=== PATIENT | female | born 1985 | race African-American/Black ===

== ENCOUNTER 2017-09-17 16:37 | Emergency (ER) | payer OTHER ==
[2017-09-17 16:58] VITALS: BP 113/62; PULSE 98; TEMP 97.6; BMI 63.8
--- NOTE | 2017-09-17 16:58 | PDOC ---
Rapid Medical Evaluation Chief Complaint: Cold Symptoms Time Seen by Provider: 09/17/17 16:56 Medical Evaluation: Allergies Allergy/AdvReac Type Severity Reaction Status Date / Time No Known Allergies Allergy Verified 05/07/16 19:58 09/17/17 16:56 The patient presents with a chief complaint of: Sore throat, ear pain, congestion for 5 days. I have performed a brief in-person evaluation of this patient; Pertinent physical exam findings: Erythematous 3+ tonsils, uvula is midline I have ordered the following: Rapid strep The patient will proceed to the ED for further evaluation. Discharge Disposition - Diagnosis Strep pharyngitis - Discharge Dispostion Disposition: HOME Condition at time of disposition: Good - Prescriptions Prescriptions: Penicillin V Potassium [Pen Vee K -] 500 mg PO BID #20 tablet - Referrals Referrals: Kade Cardoza MD [Primary Care Provider] - - Patient Instructions Printed Discharge Instructions: DI for Strep Throat Additional Instructions: gargle with warm salt water every 4hrs and after meals take motrin 800mg every 6hrs for pain honey and lemon and tea take the penicillin as directed for 10 days finish all the medications - Post Discharge Activity Work/School Note: Back to Work
--- NOTE | 2017-09-17 17:40 | PDOC ---
History of Present Illness - General Chief Complaint: Cold Symptoms Stated Complaint: COLD SYMPTOMS Time Seen by Provider: 09/17/17 16:56 History Source: Patient Exam Limitations: No Limitations - History of Present Illness Initial Comments: 09/17/17 17:36 c/o sore throat 5 days with fever and foul smelling breath. 09/17/17 17:46 Timing/Duration: reports: getting worse Severity: reports: moderate Past History - Past Medical History Allergies/Adverse Reactions: Allergies Allergy/AdvReac Type Severity Reaction Status Date / Time No Known Allergies Allergy Verified 09/17/17 16:58 Home Medications: Ambulatory Orders Penicillin V Potassium [Pen Vee K -] 500 mg PO BID #20 tablet 09/17/17 COPD: No Other medical history: obesity - Suicide/Smoking/Psychosocial Hx Smoking History: Never smoked Have you smoked in the past 12 months: No Information on smoking cessation initiated: No Hx Alcohol Use: No Drug/Substance Use Hx: No Substance Use Type: None Respiratory Specific PMHX - Complaint Specific PMHX Angina: No Bronchitis: No Pneumonia: No Pulmonary Embolus: No TB (Tuberculosis): No Review of Systems - Review of Systems Able to Perform ROS?: Yes Is the patient limited Bulgarian proficient: No Constitutional: Yes: Symptoms Reported, Fever HEENTM: Yes: Symptoms Reported *Physical Exam - Vital Signs Last Vital Signs Temp Pulse Resp BP Pulse Ox 97.6 F 98 H 19 113/62 99 09/17/17 16:55 09/17/17 16:55 09/17/17 16:55 09/17/17 16:55 09/17/17 16:55 - Physical Exam General Appearance: Yes: Nourished, Appropriately Dressed, Obese HEENT: positive: EOMI, BRANDON, Pharyngeal Erythema, Tonsillar Erythema Neck: positive: Lymphadenopathy (R), Lymphadenopathy (L) Respiratory/Chest: positive: Lungs Clear, Normal Breath Sounds Cardiovascular: positive: Regular Rhythm, Regular Rate Musculoskeletal: positive: Normal Inspection Extremity: positive: Normal Capillary Refill, Normal Inspection, Normal Range of Motion Integumentary: positive: Normal Color, Dry, Warm Neurologic: positive: skid wrapper II-XII NML intact, Fully Oriented, Alert, Normal Mood/ Affect, Normal Response, Motor Strength 5/5 ED Treatment Course - ADDITIONAL ORDERS Additional order review: 09/17/17 17:00 Group A Strep Rapid Antigen - Preliminary Throat Medical Decision Making - Medical Decision Making 09/17/17 17:37 cc: sore throat diff swallowing rapid strep sent from [facility] is positive will treat for strep *DC/Admit/Observation/Transfer Diagnosis at time of Disposition: Strep pharyngitis - Discharge Dispostion Disposition: HOME Condition at time of disposition: Good - Prescriptions Prescriptions: Penicillin V Potassium [Pen Vee K -] 500 mg PO BID #20 tablet - Referrals Referrals: Kade Cardoza MD [Primary Care Provider] - - Patient Instructions Printed Discharge Instructions: DI for Strep Throat Additional Instructions: gargle with warm salt water every 4hrs and after meals take motrin 800mg every 6hrs for pain honey and lemon and tea take the penicillin as directed for 10 days finish all the medications - Post Discharge Activity Forms/Work/School Notes: Back to Work
[2017-09-17] MEDS ORDERED: KETOROLAC TROMETHAMINE 60 MG/2 ML VIAL IM ONE (17:44)
[2017-09-17] MEDS ORDERED: KETOROLAC TROMETHAMINE 60 MG/2 ML VIAL ONE (17:45)
== END 2017-09-17 17:49 | disposition home or self-care (01) ==
LOC: JERFT 16:37
DX: J02.0 Streptococcal pharyngitis (principal); B95.0 Streptococcus, group A, as the cause of diseases classified elsewhere
CPT/HCPCS: 87070; 87077; 87430; 99281-25

== ENCOUNTER 2018-05-20 20:35 | Emergency (ER) | payer OTHER ==
[2018-05-20 21:02] VITALS: BP 120/73; PULSE 98; TEMP 98; BMI 63.8
--- NOTE | 2018-05-20 21:02 | PDOC ---
Rapid Medical Evaluation Chief Complaint: Pain, Acute Time Seen by Provider: 05/20/18 20:59 Medical Evaluation: Allergies Allergy/AdvReac Type Severity Reaction Status Date / Time No Known Allergies Allergy Verified 09/17/17 16:58 05/20/18 20:59 32 year old with right chronic knee pain now with knee pain. denies new trauma of injury. IBuprofen last this am. PE: able to leg raise, walks with a limp A: knee pain patient to the ER for further management of care. Discharge Disposition - Diagnosis Knee pain, right Qualifiers: Chronicity: acute Qualified Code(s): M25.561 - Pain in right knee - Referrals - Patient Instructions - Post Discharge Activity
--- NOTE | 2018-05-20 22:03 | PDOC ---
History of Present Illness - General Chief Complaint: Pain, Acute Stated Complaint: RIGHT KNEE PAIN Time Seen by Provider: 05/20/18 20:59 - History of Present Illness Initial Comments: 32-year-old female without comorbidities presents for evaluation of atraumatic onset of right knee pain. She states her knee pain started about 2 days ago without any precipitating traumatic event. She does have a history of right knee arthroscopy about 3 years ago. 05/20/18 22:00 Past History - Past Medical History Allergies/Adverse Reactions: Allergies Allergy/AdvReac Type Severity Reaction Status Date / Time No Known Allergies Allergy Verified 05/20/18 21:01 Home Medications: Ambulatory Orders NK [No Known Home Medication] 05/20/18 COPD: No - Suicide/Smoking/Psychosocial Hx Smoking History: Never smoked Have you smoked in the past 12 months: No Information on smoking cessation initiated: No Hx Alcohol Use: No Drug/Substance Use Hx: No Substance Use Type: None Review of Systems - Review of Systems Musculoskeletal: Yes: See HPI, Joint Pain All Other Systems: Reviewed and Negative *Physical Exam - Vital Signs Last Vital Signs Temp Pulse Resp BP Pulse Ox 98.0 F 98 H 16 120/73 100 05/20/18 21:00 05/20/18 21:00 05/20/18 21:00 05/20/18 21:00 05/20/18 21:00 - Physical Exam Comments: Right knee skin color and temperature are normal range of motion 0-95 with pain at terminal flexion. She has posterior medial joint line tenderness no lateral joint line tenderness no evidence of instability. Thigh and calf are soft and nontender. She has no gross sensorimotor deficits negative straight leg raise test and normal hip range of motion. Neurovascular intact 05/20/18 22:00 Medical Decision Making - Medical Decision Making Slightly early-onset osteoarthritis after medial meniscectomy about 3 years ago in this morbidly obese 32-year-old female 05/20/18 22:01 *DC/Admit/Observation/Transfer Diagnosis at time of Disposition: Knee pain, right Qualifiers: Chronicity: acute Qualified Code(s): M25.561 - Pain in right knee - Discharge Dispostion Disposition: HOME Condition at time of disposition: Stable Decision to Admit order: No - Referrals Referrals: Alfredito Arroyo MD [Staff Physician] - - Patient Instructions Printed Discharge Instructions: DI for Knee Pain Additional Instructions: Follow-up with orthopedic surgery in 2-3 days. Return to the emergency room if symptoms should worsen or go unresolved. He may continue to take Tylenol and Motrin as directed for pain. Wait - Post Discharge Activity
== END 2018-05-20 22:04 | disposition home or self-care (01) ==
LOC: JERFT 20:35
DX: M17.11 Unilateral primary osteoarthritis, right knee (principal); E66.01 Morbid (severe) obesity due to excess calories; Z68.44 Body mass index [BMI] 60.0-69.9, adult
CPT/HCPCS: 99281-25

== ENCOUNTER 2019-01-03 20:37 | Emergency (ER) | payer OTHER ==
[2019-01-03 20:56] VITALS: BP 144/72; TEMP 98.3; BMI 59.0
[2019-01-03] MEDS ORDERED: AMOX TR/POT CLAV 875MG/125MG TABLETS (FP) PO ONE (21:28)
[2019-01-03] MEDS ORDERED: KETOROLAC TROMETHAMINE 60 MG/2 ML VIAL IM ONE (21:28)
[2019-01-03] MEDS ORDERED: KETOROLAC TROMETHAMINE 60 MG/2 ML VIAL ONE (21:32)
[2019-01-03] MEDS ORDERED: AMOX TR/POT CLAV 875MG/125MG TABLETS (FP) ONE (21:32)
--- NOTE | 2019-01-03 21:33 | PDOC ---
History of Present Illness - General Chief Complaint: Toothache Stated Complaint: INFECTED GUM/RIGHT SIDE Time Seen by Provider: 01/03/19 20:55 History Source: Patient Exam Limitations: No Limitations - History of Present Illness Initial Comments: 01/03/19 21:31 Patient states had onset of pain and mild swelling to her right cheek lower jaw yesterday as progressively worsened throughout today. Took ibuprofen this morning with minimal resolved. Denies dental injury, denies any decay. has no recent trauma or injury. No recent illness, fever earache sore throat coughing sneezing. Timing/Duration: 24 hours Severity: mild, moderate Modifying Factors: improves with: medication Associated Symptoms: reports: headaches. denies: fever/chills Past History - Travel Traveled outside of the country in the last 30 days: No Close contact w/someone who was outside of country & ill: No - Past Medical History Allergies/Adverse Reactions: Allergies Allergy/AdvReac Type Severity Reaction Status Date / Time No Known Allergies Allergy Verified 01/03/19 20:56 Home Medications: Ambulatory Orders Amox-Tr/K Cl [Augmentin 875Mg Tablet] 1 tab PO BID #20 tablet 01/03/19 Ibuprofen 400 mg PO ASDIR 01/03/19 Naproxen [Naprosyn -] 500 mg PO BID #30 tablet 01/03/19 COPD: No - Suicide/Smoking/Psychosocial Hx Smoking History: Never smoked Have you smoked in the past 12 months: No Information on smoking cessation initiated: No Hx Alcohol Use: No Drug/Substance Use Hx: No Substance Use Type: None Review of Systems - Review of Systems Able to Perform ROS?: Yes Is the patient limited Tamazight proficient: Yes Constitutional: Yes: Symptoms Reported, See HPI, Loss of Appetite, Malaise. No : Fever HEENTM: Yes: Symptoms Reported, See HPI, Mouth Pain, Other (facial pain, with some swelling no erythema or rash) Integumentary: Yes: See HPI. No: Symptoms Reported, Bruising, Erythema All Other Systems: Reviewed and Negative *Physical Exam - Vital Signs Last Vital Signs Temp Pulse Resp BP Pulse Ox 98.3 F 97 H 144/72 100 01/03/19 20:54 01/03/19 20:54 01/03/19 20:54 01/03/19 20:54 - Physical Exam General Appearance: Yes: Nourished, Appropriately Dressed HEENT: positive: BRANDON, Normal ENT Inspection (dentition is intact, no obvious decay, caries, or dental injury noted. Has no palpable abscess to any gingival surface or palate), TMs Normal (no redness, bulging, abnormalities,). negative : Rhinorrhea, Sinus Tenderness Neck: positive: Supple, Lymphadenopathy (R) (mild adenopathy noted to some mandibular area with tenderness, jaw line has no crepitus or step-offs, no blemish or palpable abscess.). negative: Tender, Lymphadenopathy (L) Respiratory/Chest: positive: Lungs Clear, Normal Breath Sounds. negative: Respiratory Distress Extremity: positive: Normal Capillary Refill, Normal Inspection Integumentary: positive: Normal Color, Dry, Warm. negative: Rash Neurologic: positive: internal controls specialist II-XII NML intact, Fully Oriented, Alert, Normal Mood/ Affect, Normal Response, Motor Strength 01/11 Medical Decision Making - Medical Decision Making 01/03/19 21:35 Facial swelling without any obvious abscess or dental injury. Most likely related to some dental issue and patient encouraged to follow up with dentist on Saturday. We'll cover with antibiotics to attacked again cellulitis and or abscess, provided with RX for Naprosyn and a dose of Toradol IM in the emergency department. *DC/Admit/Observation/Transfer Diagnosis at time of Disposition: Right facial swelling - Discharge Dispostion Disposition: HOME Condition at time of disposition: Stable Decision to Admit order: No - Referrals - Patient Instructions Printed Discharge Instructions: DI for Tooth Abscess Additional Instructions: Rest, drink lots of fluids: Teas, water, soups Saltwater gargles/ keep mouth clean and rinse after each meal May use wet teabag for pain relief to area Avoid hard chewing foods, stick to ice cream, Jell-O, yogurt etc. Tylenol or Motrin for fever and pain Complete all medication as prescribed Seek dental appointment as soon as possible for evaluation of dental injury/pain Followup with private physician in one to 2 days as needed Return to emergency department for worsened symptoms, fevers, swelling to face or worsened pain - Post Discharge Activity Forms/Work/School Notes: Back to Work
== END 2019-01-03 21:46 | disposition home or self-care (01) ==
LOC: JERFT 20:37
PROC: 3E0233Z Introduction of Anti-inflammatory into Muscle, Percutaneous Approach (ICD-10-PCS; principal; 2019-01-03)
DX: R22.0 Localized swelling, mass and lump, head (principal)
CPT/HCPCS: 96372; 99281-25

== ENCOUNTER 2019-01-23 17:22 | Emergency (ER) | payer OTHER ==
[2019-01-23 17:40] VITALS: BP 126/64; PULSE 86; TEMP 98.1; BMI 59.0
--- NOTE | 2019-01-23 17:40 | PDOC ---
Rapid Medical Evaluation Chief Complaint: Eye Problem Time Seen by Provider: 01/23/19 17:37 Medical Evaluation: Allergies Allergy/AdvReac Type Severity Reaction Status Date / Time No Known Allergies Allergy Verified 01/03/19 20:56 01/23/19 17:38 I have performed a brief in-person evaluation of this patient. The patient presents with a chief complaint of: bilateral itching with tearing, with clear / white drainage Pertinent physical exam findings: tearing, draining with white discharge. vision WNL I have ordered the following: nothing The patient will proceed to the ED for further evaluation. Discharge Disposition - Diagnosis Eye discharge - Referrals - Patient Instructions - Post Discharge Activity
--- NOTE | 2019-01-23 18:06 | PDOC ---
History of Present Illness - General Chief Complaint: Eye Problem Stated Complaint: SWOLLEN EYES, RED AND ITCHY Time Seen by Provider: 01/23/19 17:37 History Source: Patient Exam Limitations: No Limitations Past History - Past Medical History Allergies/Adverse Reactions: Allergies Allergy/AdvReac Type Severity Reaction Status Date / Time No Known Allergies Allergy Verified 01/23/19 17:49 Home Medications: Ambulatory Orders Tobramycin 0.3% Ophth Soln [Tobrex Ophthalmic Solution -] 1 drop OU Q6HPO #1 bottle 01/23/19 COPD: No - Suicide/Smoking/Psychosocial Hx Smoking History: Never smoked Have you smoked in the past 12 months: No Hx Alcohol Use: No Drug/Substance Use Hx: No Substance Use Type: None *Physical Exam - Vital Signs Last Vital Signs Temp Pulse Resp BP Pulse Ox 98.1 F 86 17 126/64 99 01/23/19 17:39 01/23/19 17:39 01/23/19 17:39 01/23/19 17:39 01/23/19 17:39 - Physical Exam General Appearance: No: Apparent Distress HEENT: positive: EOMI, BRANDON, Other (+B/L eyes injected, whitish/yellowish discharge from left eye) Integumentary: positive: Normal Color Neurologic: positive: Alert Medical Decision Making - Medical Decision Making 33 y/o F with no sig pmh presents with B/L eye injection, burning, slightly itching from yesterday. Initially, it started in R eye and then spread to L eye. Noticed her R eye was shut together today with whitish crust around eyelids. Denies fever, sore throat, congestion, sob, cp. Probably bacterial conjunctivitis 01/23/19 18:04 *DC/Admit/Observation/Transfer Diagnosis at time of Disposition: Bacterial conjunctivitis of both eyes - Discharge Dispostion Disposition: HOME Condition at time of disposition: Stable Decision to Admit order: No - Prescriptions Prescriptions: Tobramycin 0.3% Ophth Soln [Tobrex Ophthalmic Solution -] 1 drop OU Q6HPO #1 bottle - Referrals - Patient Instructions Printed Discharge Instructions: DI for Conjunctivitis Additional Instructions: Thank you for choosing [facility]. It was a pleasure taking care of you. Please use the eyedrops - 1 drop in each eye four times a day for 5 days This condition is contagious and can spread by touch Wash hands if you rub your eyes Can also apply cool compresses Return to the Emergency Department if your symptoms worsen or persist or have other concerning symptoms. - Post Discharge Activity
== END 2019-01-23 18:13 | disposition home or self-care (01) ==
LOC: JERFT 17:22
DX: H10.33 Unspecified acute conjunctivitis, bilateral (principal); B96.89 Other specified bacterial agents as the cause of diseases classified elsewhere
CPT/HCPCS: 99281-25

== ENCOUNTER 2019-02-12 15:47 | Emergency (ER) | payer OTHER | END 2019-02-12 16:49 | disposition home or self-care (01) | LOC: JERFT 15:47 ==

== ENCOUNTER 2019-05-08 16:01 | Emergency (ER) | payer OTHER ==
[2019-05-08 16:15] VITALS: TEMP 98.5; BMI 57.7
--- NOTE | 2019-05-08 16:22 | PDOC ---
Rapid Medical Evaluation Chief Complaint: Vaginal Sxs Time Seen by Provider: 05/08/19 16:09 Medical Evaluation: Allergies Allergy/AdvReac Type Severity Reaction Status Date / Time No Known Allergies Allergy Verified 05/08/19 16:10 Vital Signs Temp Pulse Resp BP Pulse Ox 98.5 F 83 16 121/82 100 05/08/19 16:10 05/08/19 16:10 05/08/19 16:10 05/08/19 16:10 05/08/19 16:10 05/08/19 16:17 I have performed a brief in-person evaluation of this patient. The patient presents with a chief complaint of:abd pain w/ ?dysuria Pertinent physical exam findings:stable I have ordered the following:ua/upreg The patient will proceed to the ED for further evaluation. Discharge Disposition - Diagnosis Abdominal pain Qualifiers: Abdominal location: unspecified location Qualified Code(s): R10.9 - Unspecified abdominal pain - Referrals - Patient Instructions - Post Discharge Activity
[2019-05-08] MEDS ORDERED: morphine CARPU-JECT 4 MG/1 ML DISP.SYRIN IVPUSH ONE (16:39)
--- NOTE | 2019-05-08 16:57 | PDOC ---
History of Present Illness - General Chief Complaint: Vaginal Sxs Stated Complaint: PAIN TO GENITAL AREA Time Seen by Provider: 05/08/19 16:09 History Source: Patient Exam Limitations: No Limitations Past History - Past Medical History Allergies/Adverse Reactions: Allergies Allergy/AdvReac Type Severity Reaction Status Date / Time No Known Allergies Allergy Verified 05/08/19 16:10 Home Medications: Ambulatory Orders Ibuprofen 800 mg PO TID #30 tablet 02/12/19 Cephalexin Monohydrate [Keflex -] 500 mg PO BID #13 capsule 05/08/19 COPD: No - Immunization History Immunization Up to Date: Yes - Suicide/Smoking/Psychosocial Hx Smoking History: Never smoked Have you smoked in the past 12 months: No Information on smoking cessation initiated: No Hx Alcohol Use: No Drug/Substance Use Hx: No Substance Use Type: None *Physical Exam - Vital Signs Last Vital Signs Temp Pulse Resp BP Pulse Ox 98.5 F 83 16 121/82 100 05/08/19 16:10 05/08/19 16:10 05/08/19 16:10 05/08/19 16:10 05/08/19 16:10 - Physical Exam General Appearance: Yes: Moderate Distress (due to pain), Obese Respiratory/Chest: positive: Lungs Clear, Normal Breath Sounds. negative: Respiratory Distress Cardiovascular: positive: Regular Rhythm, Regular Rate, S1, S2. negative: Murmur Female Pelvic Exam: positive: adnexal tenderness (L adnexal region). negative: CMT, discharge, vaginal bleeding Gastrointestinal/Abdominal: positive: Normal Bowel Sounds, Soft. negative: Tender, Distended, Guarding, Rebound Musculoskeletal: negative: CVA Tenderness Neurologic: positive: Alert, Normal Mood/Affect ED Treatment Course - LABORATORY CBC & Chemistry Diagram: 05/08/19 17:00 05/08/19 17:00 - RADIOLOGY Radiology Studies Ordered: Category Date Time Status TRANSVAGINAL ULTRASOUND US [US] Stat Ultrasound 05/08/19 16:43 Ordered Medical Decision Making - Medical Decision Making 33 y/o F hx of fibroids, L ovarian cyst presents with constant pelvic pain radiating to back from today along with mild nausea, mild dysuria, increased urinary frequency and urgency. Has not tried anything for pain. Has never had pain like this before. Denies fever, sob, cp, vomiting, diarrhea, hematuria, vaginal bleeding, unusual vaginal discharge. LNMP was 2-3 weeks ago. Denies any prior abdominal/pelvic surgeries. Has IUD in place (unsure what type) R/O ovarian torsion; unlikely PID; less suspicious for tubo-ovarian abscess Plan: Labs, UA, transvaginal US, pain control 05/08/19 16:53 Patient noted with UTI - given Keflex Pelvic US unable to visualize L ovary well due to obscuring bowel gas and body habitus Patient's pain has improved from 10/10 from 5/10 Given inconclusive US results, will send for CT A/P for further evaluation 05/08/19 19:18 CT shows possible 2.5 cm L ovarian cyst; no other acute pathology noted Patient endorsed of results stable for dc 05/08/19 20:15 *DC/Admit/Observation/Transfer Diagnosis at time of Disposition: UTI (urinary tract infection) Qualifiers: Urinary tract infection type: acute cystitis Hematuria presence: without hematuria Qualified Code(s): N30.00 - Acute cystitis without hematuria Ovarian cyst Qualifiers: Laterality: left Qualified Code(s): N83.202 - Unspecified ovarian cyst, left side - Discharge Dispostion Disposition: HOME Condition at time of disposition: Stable Decision to Admit order: No - Prescriptions Prescriptions: Cephalexin Monohydrate [Keflex -] 500 mg PO BID #13 capsule - Referrals Referrals: Debora Heredia MD [Primary Care Provider] - 2 Days - Patient Instructions Printed Discharge Instructions: DI for Urinary Tract Infection (UTI), DI for Ovarian Cyst Additional Instructions: Thank you for choosing [facility]. It was a pleasure taking care of you. You were noted with left ovarian cyst 2.5 cm in size You were also found with urine infection - please take Keflex as prescribed Drink 2-3 L of water daily Follow-up with your regular doctor and rn family for pain Return to the Emergency Department if your symptoms worsen or persist, you have fever, shortness of breath, chest pain, severe abdominal pain, vomiting or other concerning symptoms. - Post Discharge Activity
[2019-05-08] MEDS ORDERED: morphine SULFATE 4 MG/ML VIAL ONE (17:22)
[2019-05-08 17:23] LABS: EOS % 0.9 % (0-4.5); HEMATOCRIT 35.6 % (32.4-45.2); HEMOGLOBIN 11.2 GM/dL (10.7-15.3); LYMPH % 27.6 % (8-40); MCH 24.1 pg (25.7-33.7); MCHC 31.5 g/dl (32.0-36.0); MEAN CELL VOLUME 76.5 fl (80-96); MEAN PLT VOLUME 8.4 fl (7.5-11.1); MONO % 7.5 % (3.8-10.2); PLATELET COUNT 391 K/MM3 (134-434); RBC 4.65 M/mm3 (3.60-5.2); RDW 15.2 % (11.6-15.6); WHITE BLOOD COUNT 7.2 K/mm3 (4.0-10.0)
[2019-05-08 17:40] LABS: EPI CELLS 12.9 /HPF (0-5/HPF); HYALINE CASTS 2 /lpf (0-8); PH,URINE 7.5 (5.0-8.0); URINE APPEARANCE TURBID; URINE BACTERIA 1279.5 /hpf (NEGATIVE); URINE BILIRUBIN NEGATIVE (NEGATIVE); URINE COLOR YELLOW; URINE GLUCOSE (UA) NEGATIVE (NEGATIVE); URINE KETONE TRACE (NEGATIVE); URINE LEUK ESTERASE 2+ (NEGATIVE); URINE NITRITE NEGATIVE (NEGATIVE); URINE PROTEIN 3+ (NEGATIVE); URINE UROBILINOGEN 0.2 mg/dL (0.2-1.0); URINE WBC 351 /hpf (0-5)
[2019-05-08 17:47] LABS: ALBUMIN 3.6 g/dl (3.4-5.0); BILIRUBIN,TOTAL 0.4 mg/dL (0.2-1); BLOOD UREA NITROGEN 9.9 mg/dL (7-18); CALCIUM 9.2 mg/dL (8.5-10.1); CREATININE 0.6 mg/dL (0.55-1.3); POTASSIUM 4.1 mmol/L (3.5-5.1); TOT PROT 8.2 g/dl (6.4-8.2)
[2019-05-08] MEDS ORDERED: CEPHALEXIN MONOHYDRATE 500 MG CAPSULE (UD) PO ONE (18:21)
[2019-05-08] MEDS ORDERED: CEPHALEXIN MONOHYDRATE 500 MG CAPSULE (UD) ONE (19:05)
[2019-05-08 19:36] LABS: URINE RBC 276.6 /hpf (0-4); YEAST NONE SEEN (NEGATIVE)
[2019-05-08 21:06] VITALS: BP 115/86; PULSE 74
== END 2019-05-08 20:54 | disposition home or self-care (01) ==
LOC: JER 16:01
PROC: 3E033NZ Introduction of Analgesics, Hypnotics, Sedatives into Peripheral Vein, Percutaneous Approach (ICD-10-PCS; principal; 2019-05-08)
DX: R10.9 Unspecified abdominal pain (principal); R10.2 Pelvic and perineal pain; R11.0 Nausea; R30.0 Dysuria; R35.0 Frequency of micturition; N83.202 Unspecified ovarian cyst, left side; N30.00 Acute cystitis without hematuria
CPT/HCPCS: 36415; 74177-TC; 76830-TC; 80053; 81003; 84703; 85025; 87086; 87186; 96374; 99283-25

== ENCOUNTER 2019-05-15 18:37 | Emergency (ER) | payer OTHER ==
[2019-05-15 18:42] VITALS: BP 128/78; PULSE 72; TEMP 98.6; BMI 57.7
[2019-05-15] MEDS ORDERED: KETOROLAC TROMETHAMINE 30 MG/1 ML VIAL IVPUSH ONE (19:19)
[2019-05-15 19:57] LABS: BASO % 0.4 % (0-2.0); EOS % 2.1 % (0-4.5); HEMATOCRIT 33.2 % (32.4-45.2); HEMOGLOBIN 10.7 GM/dl (10.7-15.3); LYMPH % 28.1 % (8-40); MCH 24.7 pg (25.7-33.7); MCHC 32.2 g/dl (32.0-36.0); MEAN CELL VOLUME 76.9 fl (80-96); MEAN PLT VOLUME 9.1 fl (7.5-11.1); MONO % 9.7 % (3.8-10.2); NEUT % 59.7 % (42.8-82.8); PLATELET COUNT 367 K/MM3 (134-434); RBC 4.32 M/mm3 (3.60-5.2); RDW 14.7 % (11.6-15.6); WHITE BLOOD COUNT 7.1 K/mm3 (4.0-10.8)
[2019-05-15] MEDS ORDERED: SODIUM CHLORIDE 1,000 ML IV ONE (20:00)
[2019-05-15] MEDS ORDERED: KETOROLAC TROMETHAMINE 30 MG/1 ML VIAL ONE (20:01)
[2019-05-15 20:05] LABS: ALBUMIN 3.5 g/dl (3.4-5.0); BILIRUBIN,TOTAL 0.3 mg/dl (0.2-1); CALCIUM 8.8 mg/dl (8.5-10); CREATININE 0.7 mg/dl (0.55-1.3); POTASSIUM 4.2 mmol/L (3.5-5.1); TOT PROT 7.6 g/dl (6.4-8.2)
[2019-05-15] MEDS ORDERED: CIPROFLOXACIN 400 MG/D5W 400 MG/200 ML IVPB IVPB ONE (20:15)
--- NOTE | 2019-05-15 23:00 | PDOC ---
Documentation entered by Ramez Bullock SCRIBE, acting as scribe for Rocky Hodge MD. Rocky Hodge MD: This documentation has been prepared by the Kobe wall Daniel, SCRIBE, under my direction and personally reviewed by me in its entirety. I confirm that the documentation accurately reflects all work , treatment, procedures, and medical decision making performed by me. History of Present Illness - General Chief Complaint: Pain Stated Complaint: RLQ PAIN History Source: Patient Exam Limitations: No Limitations - History of Present Illness Initial Comments: 05/15/19 19:13 The patient is a 33 year old female with a past medical history of fibroids and left ovarian cyst here today for evaluation of lower abdominal pain. The patient reports that she was seen on 05/08 for lower abdominal pain that radiates to her back. As per records, the patient had a UTI and was given keflex. Patient reports that the pain has gotten worse over the past week. Patient denies headache, lightheadedness. Denies fever, chills. Denies chest pain, shortness of breath. Denies nausea, vomiting, diarrhea. Allergies: NKA General: No fevers or chills, no weakness, no weight loss HEENT: No change in vision. No sore throat,. No ear pain CardioVascular: No chest pain or shortness of breath Respiratory:No cough, or wheezing. Gastrointestinal: +suprapubic and lower abdominal pain. no nausea, vomiting, diarrhea or constipation, No rectal bleeding Genitourinary: No dysuria, hematuria, or frequency Musculoskeletal: +low back pain. No joint or muscle pain or swelling Neurologic: No headache, vertigo, dizziness or loss of consciousness Psychiatric: nor depression Skin: No rashes or easy bruising Endocrine: no increased thirst or abnormal weight change Allergic: no skin or latex allergy All other systems reviewed and normal General: Well-nourished well-developed individual, no acute distress HEENT: Throat: Normal, tonsils normal, no erythema or exudate Neck: Supple, no meningeal signs, no lymphadenopathy Eyes::Pupils equal reactive and round, extraocular motion intact Chest: Nontender to palpation Cardiac: S1-S2 normal, regular rate and rhythm, no murmurs rubs or gallops Respiratory: Lungs clear to auscultation bilateral Abdomen: +bilateral flank tenderness to palpation. +right greater than left CVA tenderness. +lower abdominal especially suprapubic tenderness to palpation. Soft , nondistended, normal bowel sounds Extremities: Warm, dry, no cyanosis, clubbing, or edema Skin: No rashes Neuro: Alert and oriented x3, nonfocal exam, grossly intact, normal gait Psych: Normal mood and affect Assessment and plan: This is a 33-year-old morbidly obese female who comes in complaining of lower abdominal pain and bilateral flank pain. Patient Was diagnosed that as having a urinary tract infection and given Keflex. However patient is organism is resistant to cephalosporins. So patient now returns with worsening symptoms. Workup initiated including CBC, comp, urine, urine culture, CAT scan abdomen and pelvis to rule out pyelonephritis Patient given IV fluids and Toradol for the pain. 05/15/19 22:58 Reevaluation patient sleeping comfortably. CAT scan was negative for any acute pathology specifically no evidence of pyelonephritis or kidney stones. It does show a small ovarian cyst. Discussed with patient CAT scan findings and recommended the patient follow up with her OB. Patient given Levaquin for the UTI as it was sensitive to Levaquin and discharged on Macrobid as it was also sensitive to Macrobid and patient has no evidence of pyelonephritis. Past History - Past Medical History Allergies/Adverse Reactions: Allergies Allergy/AdvReac Type Severity Reaction Status Date / Time No Known Allergies Allergy Verified 05/08/19 16:10 Home Medications: Ambulatory Orders Ibuprofen 800 mg PO TID #30 tablet 02/12/19 Cephalexin Monohydrate [Keflex -] 500 mg PO BID #13 capsule 05/08/19 Naproxen 500 mg PO BID #20 tablet 05/15/19 Nitrofurantoin Monohyd/M-Cryst [Macrobid -] 100 mg PO BID #14 capsule 05/15/19 COPD: No Other medical history: Uterine fibroids - Immunization History Immunization Up to Date: Yes - Suicide/Smoking/Psychosocial Hx Smoking History: Never smoked Have you smoked in the past 12 months: No Information on smoking cessation initiated: No Hx Alcohol Use: No Drug/Substance Use Hx: No Substance Use Type: None Review of Systems - Review of Systems Able to Perform ROS?: Yes *Physical Exam - Vital Signs Last Vital Signs Temp Pulse Resp BP Pulse Ox 98.6 F 72 18 128/78 100 05/15/19 18:38 05/15/19 18:38 05/15/19 18:38 05/15/19 18:38 05/15/19 18:38 ED Treatment Course - LABORATORY CBC & Chemistry Diagram: 05/15/19 19:30 05/15/19 19:30 *DC/Admit/Observation/Transfer Diagnosis at time of Disposition: UTI (urinary tract infection) Qualifiers: Urinary tract infection type: acute cystitis Hematuria presence: without hematuria Qualified Code(s): N30.00 - Acute cystitis without hematuria - Discharge Dispostion Disposition: HOME Decision to Admit order: No - Prescriptions Prescriptions: Naproxen 500 mg PO BID #20 tablet Nitrofurantoin Monohyd/M-Cryst [Macrobid -] 100 mg PO BID #14 capsule - Referrals - Patient Instructions Additional Instructions: For the pain take naproxen 1 tablet as often as twice a day with food. I sent a prescription to your pharmacy. Return to the emergency department immediately with ANY new, persistent or worsening symptoms. Continue any medications as previously prescribed by your physician. You should follow up with your primary doctor as soon as possible regarding today's emergency department visit. . Please make sure your doctor reviews the results of your emergency evaluation. Thank you for coming to the Emergency Department today for your care. It was a pleasure to see you today. Please note that your evaluation is INCOMPLETE until you follow-up with your doctor. - Post Discharge Activity
[2019-05-15] MEDS ORDERED: PHENAZOPYRIDINE HCL 100 MG TABLET (FP) PO ONE (23:02)
[2019-05-15] MEDS ORDERED: PHENAZOPYRIDINE HCL 100 MG TABLET (FP) ONE (23:03)
[2019-05-15 23:58] LABS: EPITHELIAL CELLS MANY /hpf
== END 2019-05-15 23:20 | disposition home or self-care (01) ==
LOC: FER 18:37
PROC: 3E0333Z Introduction of Anti-inflammatory into Peripheral Vein, Percutaneous Approach (ICD-10-PCS; principal; 2019-05-15)
PROC: 3E03329 Introduction of Other Anti-infective into Peripheral Vein, Percutaneous Approach (ICD-10-PCS; 2019-05-15)
PROC: 3E0337Z Introduction of Electrolytic and Water Balance Substance into Peripheral Vein, Percutaneous Approach (ICD-10-PCS; 2019-05-15)
DX: N30.00 Acute cystitis without hematuria (principal); E66.01 Morbid (severe) obesity due to excess calories; Z68.43 Body mass index [BMI] 50.0-59.9, adult
CPT/HCPCS: 36415; 74177-TC; 80053; 81003; 81015; 83605; 84703; 85025; 87040; 87086; 96361; 96365; 96375; 99285-25; J7030

== ENCOUNTER 2020-08-03 10:11 | Emergency (ER) | payer OTHER ==
[2020-08-03 10:17] VITALS: BMI 61.2
[2020-08-03] MEDS ORDERED: KETOROLAC TROMETHAMINE 30 MG/1 ML VIAL IM ONE (11:11)
[2020-08-03] MEDS ORDERED: KETOROLAC TROMETHAMINE 30 MG/1 ML VIAL IVPUSH ONE (11:19)
[2020-08-03 11:55] LABS: BASO % 1.9 % (0-2.0); EOS % 2.1 % (0-4.5); HEMATOCRIT 37.1 % (32.4-45.2); HEMOGLOBIN 11.8 GM/dL (10.7-15.3); LYMPH % 31.2 % (8-40); MCH 24.5 pg (25.7-33.7); MCHC 31.8 g/dl (32.0-36.0); MEAN CELL VOLUME 76.9 fl (80-96); MEAN PLT VOLUME 8.8 fl (7.5-11.1); MONO % 9.1 % (3.8-10.2); NEUT % 55.7 % (42.8-82.8); PLATELET COUNT 367 K/MM3 (134-434); RBC 4.83 M/mm3 (3.60-5.2); RDW 15.4 % (11.6-15.6); WHITE BLOOD COUNT 7.5 K/mm3 (4.0-10.0)
[2020-08-03] MEDS ORDERED: KETOROLAC TROMETHAMINE 30 MG/1 ML VIAL ONE (12:05)
[2020-08-03 12:36] LABS: CHLORIDE 105 mmol/L (98-107); POTASSIUM 4.9 mmol/L (3.5-5.1); SODIUM 136 mmol/L (136-145)
[2020-08-03 12:38] LABS: ANION GAP 3 MMOL/L (8-16); BLOOD UREA NITROGEN 8.2 mg/dL (7-18); CALCIUM 8.9 mg/dL (8.5-10.1); CO2 28 mmol/L (21-32); GLUCOSE,RANDOM 78 mg/dL (74-106)
[2020-08-03 12:39] LABS: ALBUMIN 3.6 g/dl (3.4-5.0)
[2020-08-03 12:41] LABS: CREATININE 0.6 mg/dL (0.55-1.3)
[2020-08-03 12:42] LABS: SGOT/AST 20 U/L (15-37); SGPT/ALT 14 U/L (13-61)
[2020-08-03 12:43] LABS: BILIRUBIN,TOTAL 0.4 mg/dL (0.2-1); TOT PROT 8.4 g/dl (6.4-8.2)
[2020-08-03 12:44] LABS: ALK PHOS 76 U/L (45-117)
[2020-08-03 15:08] VITALS: BP 118/75; PULSE 80; TEMP 98.1
== END 2020-08-03 15:13 | disposition home or self-care (01) ==
LOC: JER 10:11
PROC: 3E0333Z Introduction of Anti-inflammatory into Peripheral Vein, Percutaneous Approach (ICD-10-PCS; principal; 2020-08-03)
DX: L02.11 Cutaneous abscess of neck (principal)
CPT/HCPCS: 36415; 70491-TC; 80053; 84702; 85025; 99285-25

== ENCOUNTER 2021-05-07 02:42 | Emergency (ER) | payer OTHER ==
[2021-05-07 03:04] VITALS: BP 101/64; PULSE 82; TEMP 98.8; BMI 59.3
== END 2021-05-07 04:00 | disposition home or self-care (01) ==
LOC: JER 02:42
DX: J02.8 Acute pharyngitis due to other specified organisms (principal)
CPT/HCPCS: 87880; 99283-25; C9803; U0003; U0005

== ENCOUNTER 2021-09-07 22:07 | Emergency (ER) | payer OTHER ==
[2021-09-07 22:48] VITALS: BP 109/74; PULSE 101; TEMP 99.7; BMI 59.3
[2021-09-07] MEDS ORDERED: ACETAMINOPHEN 325 MG TABLET (FP) PO ONE (23:11)
[2021-09-11 17:08] LABS: SARS-CoV-2 NAA Detected (Not Detected)
== END 2021-09-08 00:31 | disposition home or self-care (01) ==
LOC: JER 22:07
DX: Z11.52 Encounter for screening for COVID-19 (principal)
CPT/HCPCS: 93005; 93010; 99283-25; C9803; U0003; U0005

== ENCOUNTER 2022-07-22 15:17 | Emergency (ER) | payer OTHER ==
[2022-07-22 16:39] VITALS: BP 127/77; PULSE 94; RESP 18; TEMP 101.9; BMI 59.0
[2022-07-22] MEDS ORDERED: ONDANSETRON 4 MG/2 ML VIAL IVPUSH ONE (17:37)
[2022-07-22] MEDS ORDERED: SODIUM CHLORIDE 0.9% 500 ML INFUS.BAG IV ONE (17:37)
[2022-07-22] MEDS ORDERED: ACETAMINOPHEN 1000 MG/100 ML BAG IVPB ONE (17:37)
[2022-07-22] MEDS ORDERED: ACETAMINOPHEN INJECTION 100 ML IVPB ONE (18:02)
[2022-07-22 18:43] LABS: BASO % 0.6 % (0-2.0); EOS % 0.1 % (0-4.5); HEMATOCRIT 33.6 % (32.4-45.2); HEMOGLOBIN 10.9 GM/dL (10.7-15.3); LYMPH % 8.7 % (8-40); MCH 24.4 pg (25.7-33.7); MCHC 32.4 g/dl (32.0-36.0); MEAN CELL VOLUME 75.3 fl (80-96); MEAN PLT VOLUME 8.7 fl (7.5-11.1); MONO % 10.7 % (3.8-10.2); NEUT % 79.9 % (42.8-82.8); PLATELET COUNT 281 10^3/uL (134-434); RBC 4.46 M/mm3 (3.60-5.2); RDW 15.4 % (11.6-15.6); WHITE BLOOD COUNT 5.1 K/mm3 (4.0-10.0)
[2022-07-22 18:50] LABS: CALCIUM 8.9 mg/dL (8.5-10.1)
[2022-07-22 18:51] LABS: ALBUMIN 3.5 g/dl (3.4-5.0); BLOOD UREA NITROGEN 6.6 mg/dL (7-18); MAGNESIUM 1.7 mg/dL (1.8-2.4)
[2022-07-22 18:54] LABS: CREATININE 0.6 mg/dL (0.55-1.3)
[2022-07-22 18:56] LABS: BILIRUBIN,TOTAL 0.2 mg/dL (0.2-1)
[2022-07-22] MEDS ORDERED: ALBUTEROL SO4 2.5/IPRATROPIUM 0.5 INH SOL 3 ML VIAL.NEB. NEB ONE (19:08)
[2022-07-22] MEDS ORDERED: MAGNESIUM SULF 50% (8.12 MEQ/2 ML-1 GM VIAL) ONE (19:08)
[2022-07-22] MEDS: ALBUTEROL SO4 0.083% IH SOL 2.5 MG/3 ML VIAL.NEB. NEB SCH ×3 (19:17→19:46)
== END 2022-07-22 20:44 | disposition home or self-care (01) ==
LOC: JER 15:17
PROC: 3E033NZ Introduction of Analgesics, Hypnotics, Sedatives into Peripheral Vein, Percutaneous Approach (ICD-10-PCS; principal; 2022-07-22)
PROC: 3E033GC Introduction of Other Therapeutic Substance into Peripheral Vein, Percutaneous Approach (ICD-10-PCS; 2022-07-22)
PROC: 3E0F7GC Introduction of Other Therapeutic Substance into Respiratory Tract, Via Natural or Artificial Opening (ICD-10-PCS; 2022-07-22)
DX: R50.9 Fever, unspecified (principal); R05.9 Cough, unspecified
CPT/HCPCS: 0241U-QW; 36415; 71045-TC-FY; 80053; 83735; 84703; 85025; 93005; 93010; 99284-25